=== PATIENT | female | born 1940 | race Caucasian/White ===

== ENCOUNTER → 2016-12-09 | Outpatient (CLI) | payer MEDICARE, BC ==
--- NOTE | 2016-12-09 10:55 | US ---
EXAMINATION TYPE: US transvaginal DATE OF EXAM: 12/09/2016 COMPARISON: NONE CLINICAL HISTORY: R10.32 Left Lower Quadrant Pain. Patient states having a CT at [facility] with results s howing enlarged left ovary. , TECHNIQUE: Transvaginal (TV) and Transabdominal (TA) Date of LMP: Postmenopausal x 25 years EXAM MEASUREMENTS: Uterus: 7.2 x 5.3 x 4.5 cm Left Ovary: 7.9 x 7.9 x 4.2 x cm Suboptimal visualization due to patient body habitus and patient unable to tolerate transvaginal exam . 1. Uterus: Anteverted Heterogenous. Multiple lesions seen. Largest hypoechoic lesion seen in rig ht DENISE = 2.0 x 1.7 x 1.7 cm. Multiple left echogenic lesions seen. Fluid seen in scar = 0. 8 x 0.4 cm 2. Endometrium: Not well visualized 3. Right Ovary: Obscured by overlying bowel gas 4. Left Ovary: Unable to see transvaginally due to location. Scanned transabdominally. Hypoechoic lesion seen - 5.2 x 4.5 x 3.6 cm Spectral, color and waveform doppler imaging shows good arterial and venous flow within the ovaries ; there is no evidence for ovarian torsion. 5. Bilateral Adnexa: wnl 6. Posterior cul-de-sac: no free fluid Exam noted suboptimal due to patient's large body habitus and poor tolerance of transvaginal evaluati on. Liver is markedly heterogeneous in appearance with suspected multiple poorly defined hypoechoic f ibroids. Endometrium is not seen with certainty. In the left adnexa there is irregular hypoechoic are a marked by technologist measuring 5.2 x 4.5 x 3.6 cm could reflect enlarged left ovary in postmenopa usal female. IMPRESSION: Suboptimal but abnormal study, abnormal left adnexal possible ovarian mass. Need to furth er investigate with MRI should be based on clinical and lab correlation as well as correlation with o utside CT. Suspected fibroid uterus noted.
== END | disposition home or self-care (01) ==
LOC: RADUSWWP 09:07
PROVIDERS: ATTEND Internal Medicine
DX: R10.32 Left lower quadrant pain (principal)
CPT/HCPCS: 76830

== ENCOUNTER → 2017-09-27 | Outpatient (CLI) | payer MEDICARE, BC ==
--- NOTE | 2017-09-27 12:12 | US ---
EXAMINATION TYPE: US venous doppler duplex LE LT DATE OF EXAM: 09/27/2017 11:54 AM COMPARISON: Bilateral lower extremity venous ultrasound April 05, 2013 CLINICAL HISTORY: M79.89 LEFT LEG SWELLING. Pt states left leg pain and swelling on/off x few years/ No known prior DVT SIDE PERFORMED: Left TECHNIQUE: The lower extremity deep venous system is examined utilizing real time linear array sonog nandini with graded compression, doppler sonography and color-flow sonography. VESSELS IMAGED: External Iliac Vein (EIV) Common Femoral Vein Deep Femoral Vein Greater Saphenous Vein * Femoral Vein Popliteal Vein Small Saphenous Vein * Proximal Calf Veins (* superficial vessels) Left Leg: Negative for DVT Results called to Krys at Dr's office at time of exam Grayscale, color doppler, spectral doppler imaging performed of the deep veins of the left lower extr emity. There is normal flow, compressibility, vascular waveforms. IMPRESSION: No ultrasound evidence for acute DVT in the left lower extremity.
== END | disposition home or self-care (01) ==
LOC: RADUSWWP 11:29
PROVIDERS: ATTEND Internal Medicine
DX: M79.89 Other specified soft tissue disorders (principal)

== ENCOUNTER → 2018-11-11 | Outpatient (CLI) | payer MEDICARE, BC ==
--- NOTE | 2018-11-11 13:21 | XR ---
EXAMINATION TYPE: XR bone survey complete DATE OF EXAM: 11/11/2018 COMPARISON: NONE HISTORY: Bilateral arm pain, history of renal disease, renal mass, an ovarian mass. FINDINGS: Overall there is diffuse mild osseous demineralization and can be seen and renal osteodystr ophy or other etiology of osteoporosis. BONY CALVARIUM : 2 views of the bony calvarium demonstrate no widening of the diploic space. Pineal g land calcifications are noted. Sella turcica is unremarkable. No focal lytic lesion is seen. Few prom inent arachnoid granulations are noted. Minimal left maxillary mucosal thickening is seen. Remaining paranasal sinuses appear well aerated. SPINE: Two views of the cervical, thoracic and lumbar spines are submitted. Mild multilevel degenera tive changes of the cervical spine are seen with straightening of usual cervical lordosis that may be on the basis of muscular sprain/spasm and/or patient positioning. Thoracic spine demonstrates modera te degenerative changes of the lower thoracic spine without vertebral body height loss. Bridging ante rior osteophytes are seen. Lumbar spine also demonstrates mild multilevel degenerative change demonst rated as bridging anterior osteophytes of the upper lumbar spine and facet arthropathy of the lower l umbar spine. Extensive atherosclerosis of the abdominal aorta is also noted on the lateral view of th e lumbar spine. Cholecystectomy clips are also seen. Mild levoscoliosis of the lumbar spine is noted. PELVIS: Single view of the pelvis demonstrates mild bilateral femoral acetabular arthropathy and sac roiliac joint sclerosis. No acute fracture of the pelvis. No focal lytic lesion. Bowel gas limits carl luation for lytic lesion in the upper iliac bones. UPPER EXTREMITIES: Two views of the upper extremities were submitted. Moderate bilateral chromic clav icular arthropathy is seen. No suspicious lesion within either humerus. LOWER EXTREMITIES: 2 views of the lower extremities were submitted. Moderate to severe arthropathy o f the knees is seen. No focal lytic lesion or suspicious sclerosis is seen of the bilateral femurs. SINGLE VIEW OF THE CHEST: Cardiomediastinal silhouette is upper limits of normal. Mild pulmonary vasc ular prominence/cephalization. No sizable pleural effusion or pneumothorax. No focal consolidation. IMPRESSION: 1. Mild generalized osseous demineralization and can be seen in renal osteodystrophy or other etiolog y. No focal sclerosis, brown tumor, or suspicious osseous lesion are seen. 2. Mild pulmonary vascular congestion. Correlate for noncardiogenic fluid overload.
== END | disposition home or self-care (01) ==
LOC: RADXRMAIN 10:17
PROVIDERS: ATTEND Nurse Practitioner Adult Health
DX: N18.9 Chronic kidney disease, unspecified (principal); E11.22 Type 2 diabetes mellitus with diabetic chronic kidney disease; E03.9 Hypothyroidism, unspecified; Z71.3 Dietary counseling and surveillance
CPT/HCPCS: 77075

== ENCOUNTER → 2021-01-07 | Day surgery (SDC) | payer MEDICARE, BC ==
[~2021-01-07] MED LIST: LACTATED RINGERS 1,000 ML IV SCH; LIDOCAINE 1% INJ 10MG/ML (20 ML MDV) ONE; PROPOFOL 10 MG/ML 20 ML VIAL IV ONE
[2021-01-07 07:18] VITALS: TEMP 98
[2021-01-07 07:29] LABS: Glucose,Whole Blood 194 mg/dL (75-99)
[2021-01-07 08:21] VITALS: BP 134/76; PULSE 60; RESP 20
[2021-01-07 08:39] LABS: Anisocytosis Slight; Basophils % (A) 1 %; Eosinophils % (A) 1 %; HCT 30.7 % (34.0-46.0); HGB 10.1 gm/dL (11.4-16.0); Lymphocytes # (A) 0.4 k/uL (1.0-4.8); Lymphocytes % (A) 28 %; MCH 27.6 pg (25.0-35.0); MCHC 32.8 g/dL (31.0-37.0); MCV 84.4 fL (80.0-100.0); Mean Platelet Volume 10.4; Monocytes # (A) 0.1 k/uL (0-1.0); Monocytes % (A) 6 %; Neutrophils % (A) 62 %; Platelet Count 190 k/uL (150-450); Poikilocytosis Slight; RBC 3.64 m/uL (3.80-5.40); RDW 16.2 % (11.5-15.5); WBC 1.6 k/uL (3.8-10.6)
[2021-01-07 08:45] LABS: Reticulocyte % 2.2 % (0.5-2.0)
[2021-01-07 09:02] LABS: Rouleaux Present
--- NOTE | 2021-01-07 09:07 | PCN ---
PROCEDURE NOTE PREOP DIAGNOSIS: Multiple myeloma. POSTOP DIAGNOSIS: Multiple myeloma. ANESTHESIA: Local with IV systemic sedation. DETAILS: Utilizing sterile technique, the skin overlying the right iliac crest was prepared with alcohol after adequate sterile draping, local anesthesia with 1% lidocaine and systemic sedation, a size 11 4 inch [employer] needle was utilized to access the periosteum with ease. A total of 14 mL of aspirate and 7 mm core biopsies were obtained. The patient tolerated the procedure well. There was no immediate procedure related complications. TOTAL BLOOD LOSS: Less than 1 mL. Results pending. MMODL / IJN: [id number] /
== END ==
LOC: OR 06:46
PROVIDERS: ATTEND Internal Medicine Hematology & Oncology
DX: C90.00 Multiple myeloma not having achieved remission (principal); I10 Essential (primary) hypertension; E78.5 Hyperlipidemia, unspecified; E11.9 Type 2 diabetes mellitus without complications; E07.9 Disorder of thyroid, unspecified; N28.9 Disorder of kidney and ureter, unspecified
CPT/HCPCS: 85025; 85045; 38222; J2001; J2704

== ENCOUNTER → 2022-05-05 | Outpatient (CLI) | payer MEDICARE, BC ==
--- NOTE | 2022-05-05 11:50 | CT ---
EXAMINATION TYPE: CT abdomen pelvis wo con DATE OF EXAM: 05/05/2022 COMPARISON: Pain HISTORY: Calculus of Kidney CT DLP: 1709.20 mGycm Automated exposure control for dose reduction was used. TECHNIQUE: Helical acquisition of images was performed from the lung bases through the pelvis. FINDINGS: LUNG BASES: No significant abnormality is appreciated. Annular calcification noted. Heart size mildly enlarged. LIVER/GB: Postcholecystectomy changes noted. PANCREAS: No significant abnormality is seen. SPLEEN: No significant abnormality is seen. ADRENALS: No significant abnormality is seen. KIDNEYS: Right kidney: There is mild right hydronephrosis with a right renal pelvic calculus measuring 2.2 cm There is a additional 1 and 2 mm posterior mid pole right renal calculus. Left kidney: No hydronephrosis or nephrolithiasis. Calcification seen anteriorly in the mid pole on a xial image 61 is most likely vascular. URINARY BLADDER: No significant abnormality is seen. ADENOPATHY: None visualized. OSSEOUS STRUCTURES: No significant abnormality is seen. BOWEL: Bowel gas pattern nonspecific with no evidence of obstruction. Diverticulosis of the colon. OTHER: There is an anterior abdominal wall defect. There is subcutaneous edema. There is a lobulated exophytic mass extending off the left anterior margin of the uterus measuring 6.1 cm. No free fluid. Vascular calcifications are noted. Aorta of normal caliber. IMPRESSION: 1. Multiple right-sided renal calculi in the largest measuring 2.2 cm. Mild hydronephrosis. 2. 6.1 cm left uterine mass recommend ultrasound of the pelvis. Although this could represent a uteri ne fibroid other uterine masses are not excluded. Additionally there is a cystic adnexal lesion on th e left measuring 3 cm which is atypical for this age group. Consider correlation with tumor marker CA 125. 3. Anterior abdominal wall hernia containing bowel loops but no evidence of obstruction.
== END | disposition home or self-care (01) ==
LOC: RADCTMAIN 11:12
PROVIDERS: ATTEND Urology
DX: N13.2 Hydronephrosis with renal and ureteral calculous obstruction (principal); N83.8 Other noninflammatory disorders of ovary, fallopian tube and broad ligament; K43.9 Ventral hernia without obstruction or gangrene; D25.9 Leiomyoma of uterus, unspecified
CPT/HCPCS: 74176

== ENCOUNTER → 2022-06-18 | Outpatient (CLI) | payer MEDICARE, BC ==
[2022-06-18 15:30] LABS: HCT 38.6 % (37.2-46.3); HGB 12.5 g/dL (12.0-15.0); MCH 29.2 pg (27.0-32.0); MCHC 32.4 g/dL (32.0-37.0); MCV 90.2 fL (80.0-97.0); Mean Platelet Volume 12.2 fL (9.5-12.2); NRBC Per 100 WBC 0 /100 WBCS (0.0-0.0); Platelet Count 152 X 10*3/uL (140-440); RBC 4.28 X 10*6/uL (4.10-5.20); WBC 7.33 X 10*3/uL (4.50-10.00)
[2022-06-18 15:33] LABS: Appearance,Urine Clear (Clear); Bilirubin,Urine Negative (Negative); Blood,Urine Large (Negative); Color,Urine Yellow (Yellow); Ketones,Urine Negative (Negative); Nitrite,Urine Negative (Negative); PH, Urine 5.5 (5.0-8.0); Specific Gravity,Urine 1.009 (1.001-1.030); Urobilinogen,Urine 0.2 (0.2,1.0)
[2022-06-18 15:41] LABS: African American GFR (CKD) 42.1 (60.0-200.0); Albumin 4.2 g/dL (3.8-4.9); Albumin/Globulin Ratio 1.73 (1.60-3.17); Anion Gap 13.8 mmol/L (10.00-18.00); BUN/Creat Ratio 16.72 Ratio (12.00-20.00); Bacteria,Urine None Seen /HPF (None Seen); Blood Urea Nitrogen 22.9 mg/dL (9.0-27.0); Calcium 8.3 mg/dL (8.7-10.3); Carbon Dioxide 25.2 mmol/L (20.0-27.5); Globulin 2.4 g/dL (1.6-3.3); Non-African American GFR(CKD) 36.3 (60.0-200.0); Potassium 3.6 mmol/L (3.5-5.5); Total Bilirubin 0.9 mg/dL (0.30-1.20); Total Protein 6.6 g/dL (6.2-8.2)
== END | disposition home or self-care (01) ==
LOC: LABPAT 09:55
PROVIDERS: ATTEND Urology
DX: Z01.812 Encounter for preprocedural laboratory examination (principal); R31.29 Other microscopic hematuria
CPT/HCPCS: 80053; 81001; 85027; 87086

== ENCOUNTER → 2022-11-12 | Outpatient (CLI) | payer MEDICARE, BC ==
--- NOTE | 2022-11-12 13:18 | CT ---
EXAMINATION TYPE: CT abdomen pelvis wo con DATE OF EXAM: 11/12/2022 COMPARISON: 05/05/2022 HISTORY: flank pain, UTI CT DLP: 1175.7 mGycm Examination of the solid and hollow viscera is limited given the lack of contrast. FINDINGS: LUNG BASES: No evidence for nodule. No evidence for infiltrate. LIVER/GB: The gallbladder is surgically absent. No space-occupying hepatic lesion. PANCREAS: No pancreatic mass identified. No inflammatory process seen. SPLEEN: No evidence for splenomegaly. No intrasplenic lesions seen. ADRENALS: No adrenal nodules identified. No evidence for thickening. KIDNEYS: Exophytic hypoattenuating lesion measuring 2.6 cm upper pole left kidney and a reflect a cys t. 1 cm exophytic cyst lower pole left kidney. Nonobstructing 3 mm calculus midpole right kidney. No hydronephrosis. BOWEL: Appendix has a normal appearance. No evidence of bowel obstruction. No inflammatory process. G ated sigmoid diverticulosis. Lymph nodes: No evidence for adenopathy greater than 1 cm. Abdominal aorta: Atheromatous changes seen. No evidence for aneurysm. Genital organs: Exophytic mass arising from the uterine fundus to the left of midline measuring 6.6 c m may reflect large leiomyoma. Small focal calcification seen as well. Other: Wide mouth low anterior abdominal midline hernia contains fat and a couple of loops of nonobst ructed small bowel. IMPRESSION: 1. Probable renal cystic lesions. Lack of contrast limits evaluation. 2. Nonobstructing right renal lesion. 3. Large exophytic uterine mass may reflect leiomyoma and could be further evaluated with ultrasound.
== END | disposition home or self-care (01) ==
LOC: RADCTMAIN 12:25
PROVIDERS: ATTEND Urology
DX: N20.0 Calculus of kidney (principal); N20.9 Urinary calculus, unspecified; N28.89 Other specified disorders of kidney and ureter
CPT/HCPCS: 74176

== ENCOUNTER → 2023-10-12 | Day surgery (SDC) | payer MEDICARE, BC ==
[~2023-10-12] MED LIST changes: +ALPRAZolam 0.25 MG TAB PO PRN; +ALPRAZolam 0.5 MG TAB PO PRN; +ASPIRIN 325 MG TAB PO STA; +ATORVASTATIN 80 MG TAB PO STA; +HEPARIN SODIUM 1,000 UN/ML (10ML VL) ONE; +HEPARIN SODIUM,PORCINE (1 ML) 2,500 UNIT in SODIUM CHLORIDE 0.9% 250 ML IRRIGATION PRN; +HEPARIN SODIUM,PORCINE 10,000 UNIT in SODIUM CHLORIDE 0.9% 1,000 ML IRRIGATION PRN; -LACTATED RINGERS 1,000 ML IV SCH; +NITROGLYCERIN SL TABS 0.4 MG TAB SUBLINGUAL PRN; -PROPOFOL 10 MG/ML 20 ML VIAL IV ONE; +SODIUM CHLORIDE 0.9% 1,000 ML in EMPTY BAG 1 BAG IV SCH; +VERAPAMIL 2.5 MG/ML 2 ML AMP ONE; +fentaNYL (PF) 50 MCG/ML 2 ML AMP ONE
[2023-10-12 12:32] LABS: Basophils # (A) 0.1 k/uL (0-0.2); Basophils % (A) 1 %; Eosinophils # (A) 0.2 k/uL (0-0.7); Eosinophils % (A) 3 %; HCT 37.2 % (34.0-46.0); HGB 12.2 gm/dL (11.4-16.0); Lymphocytes # (A) 2.4 k/uL (1.0-4.8); Lymphocytes % (A) 32 %; MCH 30.3 pg (25.0-35.0); MCHC 32.7 g/dL (31.0-37.0); MCV 92.5 fL (80.0-100.0); Mean Platelet Volume 10.5; Monocytes # (A) 0.4 k/uL (0-1.0); Monocytes % (A) 6 %; Neutrophils # (A) 4.1 k/uL (1.3-7.7); Neutrophils % (A) 56 %; Platelet Count 140 k/uL (150-450); RBC 4.02 m/uL (3.80-5.40); RDW 13.3 % (11.5-15.5); WBC 7.3 k/uL (3.8-10.6)
[2023-10-12 12:32] LABS: Glucose,Whole Blood 160 mg/dL (70-110)
[2023-10-12 12:33] VITALS: RESP 16; TEMP 97.7
[2023-10-12] MEDS: SODIUM CHLORIDE 0.9% 1,000 ML IV ONE (12:39)
[2023-10-12 12:53] LABS: African American GFR (CKD) 49 (>60 ml/min/1.73 sqM); Anion Gap 10 mmol/L; Blood Urea Nitrogen 21 mg/dL (7-17); Calcium 8.4 mg/dL (8.4-10.2); Carbon Dioxide 20 mmol/L (22-30); Chloride 110 mmol/L (98-107); Glucose 151 mg/dL (74-99); Non-African American GFR(CKD) 43 (>60 ml/min/1.73 sqM); Sodium 140 mmol/L (137-145)
[2023-10-12 12:55] LABS: Potassium 4.9 mmol/L (3.5-5.1)
[2023-10-12] MEDS: fentaNYL (PF) 50 MCG/ML 2 ML AMP IVP ONE (13:45)
[2023-10-12] MEDS: MIDAZOLAM 2 MG/2 ML VIAL IVP ONE (13:45)
[2023-10-12] MEDS: LIDOCAINE 1% INJ 10MG/ML (20 ML MDV) SQ ONE (13:45)
[2023-10-12] MEDS: VERAPAMIL SYRINGE (5 MG/10 ML) INTRAARTER ONE (13:46)
[2023-10-12] MEDS: HEPARIN SODIUM 1,000 UN/ML (10ML VL) IVP ONE (13:51)
[2023-10-12] MEDS: IOPAMIDOL-370 200ML BTL INJ ONE (13:55)
--- NOTE | 2023-10-12 15:14 | P.CARDCATH ---
Description of Procedure: PROCEDURES PERFORMED: Left heart catheterization, bilateral coronary angiography, ultrasound guided arterial access INDICATION: [] CONSENT:I have discussed the risks, benefits and alternative therapies for the above-mentioned procedure and for both sedation/analgesia as well as necessary blood product administration, if indicated, as they pertain to this patient. The patient has indicated understanding and acceptance of the risks and procedures discussed. PROCEDURE: After the risks, benefits and alternatives of the above mentioned procedure explained in detail with the patient, informed consent was obtained. Patient was taken to the catheterization lab and prepped and draped in usual fashion. Ultrasound guidance was used to assess for arterial access. 1% lidocaine was used to anesthetize the right radial artery. A 6-Kazakh sheath was placed in the right radial artery using modified Seldinger technique and ultrasound guidance. Left coronary angiography was performed with a 5-Kazakh JL 3.5 catheter and right coronary angiography was performed with a 5-Kazakh FR5 catheter in various views. A 5-Kazakh FR5 catheter was inserted into the left ventricle and pressure measurements were obtained. The right radial sheath was removed and a TR band was placed with hemostasis achieved. The patient tolerated the procedure well. Patient was transported back to the post catheterization holding area in stable condition. Conscious Sedation: Patient was monitored under the direct supervision of myself for conscious sedation using Versed and fentanyl for a total duration of 7 minutes HEMODYNAMICS: Aorta: 151/79 LV: 188/15, LVEDP 27, mean gradient 35mmHg SELECTIVE CORONARY ARTERIOGRAPHY: LEFT MAIN: The left main is a large caliber vessel which trifurcates into the LAD, ramus and circumflex. There is no significant stenosis. LEFT ANTERIOR DESCENDING CORONARY ARTERY: LAD is a large caliber vessel which wraps around to the apex. There is a 30-40% mid LAD stenosis after a moderate caliber diagonal 1 branch and otherwise mild luminal irregularities. Diagonal 1 has a proximal 20-30% stenosis. RAMUS INTERMEDIUS: Ramus intermedius is a small to moderate caliber vessel with mild luminal irregularities. LEFT CIRCUMFLEX CORONARY ARTERY: Left circumflex is a moderate caliber vessel with mild luminal irregularities. RIGHT CORONARY ARTERY: The right coronary artery is a large caliber vessel which gives off a PDA and PLV branch and is the dominant vessel. There is a mid RCA 30% stenosis and a proximal PDA 50% stenosis. FINAL IMPRESSION: 1. Mild to moderate CAD as described above including 30-40% mid LAD stenosis, mid RCA 30% stenosis and proximal PDA 50% stenosis. 2. Elevated left sided filling pressures 3. Moderate aortic stenosis PLAN: 1. Aggressive risk factor modification per most recent ACC/AHA guidelines. 2. Patient with significantly elevated LVEDP and consider increasing diuretics. Discussed avoiding salt.
[2023-10-12 18:40] VITALS: BP 151/69; PULSE 80
== END ==
LOC: CATHCVL 11:18
PROVIDERS: ATTEND Internal Medicine
DX: I25.10 Atherosclerotic heart disease of native coronary artery without angina pectoris (principal); E78.5 Hyperlipidemia, unspecified; I12.9 Hypertensive chronic kidney disease with stage 1 through stage 4 chronic kidney disease, or unspecified chronic kidney disease; N18.9 Chronic kidney disease, unspecified; Z82.49 Family history of ischemic heart disease and other diseases of the circulatory system; Z79.82 Long term (current) use of aspirin; Z79.899 Other long term (current) drug therapy
CPT/HCPCS: 93458; 76937; 80048; 85025; C1769; C1894; J2250; J2001; J3010; J1644; Q9967

== ENCOUNTER 2024-01-31 21:44 | Inpatient (IN) | payer MEDICARE, BC ==
--- NOTE | 2024-01-31 22:03 | ED ---
General Adult HPI - General Chief complaint: Extremity Injury, Upper Stated complaint: Extremity Problem Time Seen by Provider: 01/31/24 21:46 Source: patient, EMS Mode of arrival: EMS Limitations: no limitations - History of Present Illness Initial comments: Patient is an 83-year-old woman who arrives here as a transfer from [facility]. The patient had fallen against her car this afternoon and had gone to the other department where she was seen and during workup found to have right humerus fracture with displacement. The patient also having left shoulder pain and therefore not able to use either arm. Denies injury to head or neck. No chest, back, abdomen or lower extremity pains. -: hour(s) Location: left, right, upper extremity Radiation: non-radiation Quality: sharp Consistency: constant Improves with: immobilization Worsens with: none Associated Symptoms: denies other symptoms Treatments Prior to Arrival: none - Related Data Home Medications Medication Instructions Recorded Confirmed Cholecalciferol [Vitamin D3 (25 50 mcg PO DAILY 01/03/21 02/01/24 Mcg = 1000 Iu)] Gabapentin [Neurontin] 400 mg PO BID 01/03/21 02/01/24 Calcium Carbonate [Tums] 500 mg PO DAILY 06/19/22 02/01/24 Losartan Potassium [Cozaar] 50 tab PO DAILY 06/19/22 02/01/24 INSULIN LISPRO (HumaLOG) [humaLOG] See Protocol SQ AC-TID 10/08/23 02/01/24 Insulin Glargine/Lixisenatide 46 unit SQ DAILY 10/08/23 02/01/24 [Soliqua 100 Unit-33 Mcg/ml Pen] Spironolactone 25 mg PO HS 10/08/23 02/01/24 Chlorhexidine Gluconate [Peridex] 15 ml PO BID 02/01/24 02/01/24 Empagliflozin [Jardiance] 10 mg PO DAILY 02/01/24 02/01/24 Levothyroxine Sodium [Synthroid] 112 mcg PO DAILY 02/01/24 02/01/24 Potassium Citrate [Urocit-K] 15 meq PO BID 02/01/24 02/01/24 amLODIPine [Norvasc] 10 mg PO HS 02/01/24 02/01/24 Allergies Allergy/AdvReac Type Severity Reaction Status Date / Time No Known Allergies Allergy Verified 02/01/24 14:45 Review of Systems ROS Statement: Those systems with pertinent positive or pertinent negative responses have been documented in the HPI. ROS Other: All systems not noted in ROS Statement are negative. Constitutional: Denies: fever, chills Respiratory: Denies: cough, dyspnea Cardiovascular: Denies: chest pain, palpitations Gastrointestinal: Denies: abdominal pain, nausea, vomiting Genitourinary: Denies: dysuria, hematuria Musculoskeletal: Reports: as per HPI, joint swelling, arthralgia. Denies: back pain Skin: Denies: rash Neurological: Denies: headache, weakness, numbness, paresthesias Past Medical History Past Medical History: Diabetes Mellitus, Hyperlipidemia, Hypertension, Renal Disease, Thyroid Disorder Additional Past Medical History / Comment(s): IDDM. ANEMIA/iron infusions, STAGE III KIDNEY STAGE. PERIPHERAL NEUROPATHY FEET AND HANDS. History of Any Multi-Drug Resistant Organisms: None Reported Past Surgical History: Appendectomy, Section, Cholecystectomy, Tonsillectomy Additional Past Surgical History / Comment(s): THYROIDECTOMY Past Anesthesia/Blood Transfusion Reactions: No Reported Reaction Past Psychological History: No Psychological Hx Reported Smoking Status: Never smoker - Past Family History Mother Family Medical History: No Reported History Additional Family Medical History / Comment(s): "heart issues" General Exam Limitations: no limitations General appearance: alert, in no apparent distress Head exam: Present: atraumatic, normocephalic Eye exam: Present: normal appearance. Absent: scleral icterus, conjunctival injection ENT exam: Present: normal oropharynx Neck exam: Present: normal inspection, full ROM. Absent: tenderness Respiratory exam: Present: normal lung sounds bilaterally. Absent: respiratory distress, wheezes, rales, rhonchi, stridor, chest wall tenderness, accessory muscle use Cardiovascular Exam: Present: regular rate, normal rhythm, normal heart sounds. Absent: systolic murmur, diastolic murmur, rubs, gallop GI/Abdominal exam: Present: soft. Absent: distended, tenderness, guarding, rebound, rigid, mass Extremities exam: Present: tenderness, normal capillary refill, joint swelling, other (Patient arrives with splint to the R elbow/forearm. There is swelling and tenderness to the proximal humerus. Intact neurovascular to the right wrist and hand. The patient has tenderness and decreased range of motion to the left shoulder.). Absent: full ROM, pedal edema Back exam: Present: normal inspection. Absent: vertebral tenderness Neurological exam: Present: alert. Absent: motor sensory deficit Skin exam: Present: warm, dry, intact, normal color. Absent: rash Course Vital Signs 01/31/24 02/01/24 02/01/24 21:49 01:41 04:44 Temperature 97.9 F Pulse Rate 74 76 83 Respiratory 18 19 18 Rate Blood Pressure 132/70 149/70 132/49 O2 Sat by Pulse 94 L 95 95 Oximetry 02/01/24 02/01/24 02/01/24 06:22 08:20 09:35 Temperature 99.3 F Pulse Rate 82 81 64 Respiratory 18 18 18 Rate Blood Pressure 162/68 143/61 137/40 O2 Sat by Pulse 95 93 L 95 Oximetry 02/01/24 02/01/24 10:24 11:15 Temperature 98.5 F Pulse Rate 75 74 Respiratory 18 18 Rate Blood Pressure 112/75 123/56 O2 Sat by Pulse 95 95 Oximetry EKG Findings - EKG Results: EKG: interpreted by ERMD, normal axis, normal QRS - Dysrhythmias: Supraventricular dysrhythmia: ectopic atrial rhythm - Blocks, [place], Hypertrophy, ST Abn: AV and intraventricular conduction: 1 AV block Repolarization changes or abnormalities: nonspecific abnormality, ST segment, and/or T wave Medical Decision Making - Medical Decision Making Was pt. sent in by a medical professional or institution (LINDA Torres, SAFETY EQUIPMENT TESTER, urgent care, hospital, or detention...) When possible be specific @ -[Patient is transferred here from [facility] to have orthopedic surgery evaluation for humerus fracture Did you speak to anyone other than the patient for history (EMS, parent, family, police, friend...)? What history was obtained from this source @ -[Case discussed with the transferring physician Did you review nursing and triage notes (agree or disagree)? Why? @ -[I reviewed and agree with nursing and triage notes] Were old charts reviewed (outside hosp., previous admission, EMS record, old EKG, old radiological studies, urgent care reports/EKG's, detention records)? Report findings @ -[Transfer charts were reviewed] Differential Diagnosis (chest pain, altered mental status, abdominal pain women, abdominal pain men, vaginal bleeding, weakness, fever, dyspnea, syncope, headache, dizziness, GI bleed, back pain, seizure, CVA, palpatations, mental health, musculoskeletal)? @ -[Differential Musculoskeletal Muscular strain, contusion, ligament sprain, fracture, arthritis, septic arthritis, bursitis, cellulitis, muscle spasm, nerve compression, DVT, arterial occlusion, herpes zoster, electrolyte abnormality, tumor.... This is not meant to be in all inclusive list EKG interpreted by me (3pts min.). @ -[I interpreted as above] X-rays interpreted by me (1pt min.). @ -[None done] CT interpreted by me (1pt min.). @ -[None done] U/S interpreted by me (1pt. min.). @ -[None done] What testing was considered but not performed or refused? (CT, X-rays, U/S, labs)? Why? @ -[None] What meds were considered but not given or refused? Why? @ -[None] Did you discuss the management of the patient with other professionals (professionals i.e. , PA, SAFETY EQUIPMENT TESTER, lab, RT, psych nurse, public health social worker, miniature set designer, teacher, medical officer, employment case manager)? Give summary @ -[Case discussed with admitting physician and treatment recommendations are incorporated Was smoking cessation discussed for >3mins.? @ -[No] Was critical care preformed (if so, how long)? @ -[No] Were there social determinants of health that impacted care today? How? (Homelessness, low income, unemployed, alcoholism, drug addiction, transportation, low edu. Level, literacy, decrease access to med. care, skilled nursing, rehab)? @ -[No] Was there de-escalation of care discussed even if they declined (Discuss DNR or withdrawal of care, Hospice)? DNR status @ -[No] What co-morbidities impacted this encounter? (DM, HTN, Smoking, COPD, CAD, Cancer, CVA, ARF, Chemo, Hep., AIDS, mental health diagnosis, sleep apnea, morbid obesity)? @ -[Underlying diabetes Was patient admitted / discharged? Hospital course, mention meds given and route, prescriptions, significant lab abnormalities, going to OR and other pertinent info. @ -[Patient is an 83-year-old woman here with bilateral humerus fractures. She is not able to move either arm and therefore not able to care for self as outpatient. The patient is admitted to orthopedic surgery given the acute nature of the injury we will have medical consultation for medical management. Undiagnosed new problem with uncertain prognosis? @ -[No] Drug Therapy requiring intensive monitoring for toxicity (Heparin, Nitro, Insulin, Cardizem)? @ -[No] Were any procedures done? @ -[No] Diagnosis/symptom? @ -[Left humerus neck fracture Right proximal humerus shaft fracture with displacement Acute, or Chronic, or Acute on Chronic? @ -[Acute Uncomplicated (without systemic symptoms) or Complicated (systemic symptoms)? @ -[Uncomplicated Side effects of treatment? @ -[No] Exacerbation, Progression, or Severe Exacerbation? @ -[No] Poses a threat to life or bodily function? How? (Chest pain, [place], [place], pneumonia, PE, COPD, DKA, ARF, appy, cholecystitis, CVA, Diverticulitis, Homicidal, Suicidal, threat to staff... and all critical care pts) @ -[No] - Lab Data Result diagrams: 02/01/24 10:08 02/02/24 07:50 Disposition Clinical Impression: Fall, Closed fracture of left proximal humerus, Right humeral fracture Disposition: ADMITTED IP TO THIS HOSP Condition: Stable Is patient prescribed a controlled substance at d/c from ED?: No
[2024-01-31] MEDS ORDERED: ONDANSETRON 4 MG/2 ML VIAL IVP PRN (22:44)
[2024-01-31] MEDS ORDERED: ACETAMINOPHEN TAB 325 MG TAB PO PRN (22:44)
[2024-01-31] MEDS ORDERED: NALOXONE 0.4 MG/ML 1 ML VIAL IV PRN (22:44)
[2024-01-31] MEDS ORDERED: MAGNESIUM HYDROXIDE 2,400 MG/30 ML CUP PO PRN (22:44)
[2024-01-31] MEDS ORDERED: MAG HYDROX/AL HYDROX/SIMETH 30 ML CUP PO PRN (22:44)
[2024-01-31] MEDS ORDERED: DEXTROSE 50% SYRINGE 50 ML IVP PRN ×2 (22:55)
[2024-01-31 23:08] LABS: Glucose,Whole Blood 164 mg/dL (70-110)
[2024-01-31] MEDS: SODIUM CHLORIDE 0.9% 1,000 ML IV SCH (23:15)
[2024-01-31 23:20] LABS: Basophils % (A) 0 %; Eosinophils # (A) 0.1 k/uL (0-0.7); Eosinophils % (A) 1 %; HCT 37.9 % (34.0-46.0); HGB 12.4 gm/dL (11.4-16.0); Lymphocytes # (A) 0.9 k/uL (1.0-4.8); Lymphocytes % (A) 9 %; MCH 29.1 pg (25.0-35.0); MCHC 32.7 g/dL (31.0-37.0); MCV 89.1 fL (80.0-100.0); Monocytes # (A) 0.5 k/uL (0-1.0); Monocytes % (A) 5 %; Neutrophils # (A) 8.4 k/uL (1.3-7.7); Neutrophils % (A) 84 %; Platelet Count 118 k/uL (150-450); RBC 4.26 m/uL (3.80-5.40); RDW 14.1 % (11.5-15.5)
[2024-01-31 23:29] LABS: Sodium 131 mmol/L (137-145)
[2024-01-31 23:30] LABS: African American GFR (CKD) 38 (>60 ml/min/1.73 sqM); Anion Gap 6 mmol/L; Blood Urea Nitrogen 35 mg/dL (7-17); Calcium 8.1 mg/dL (8.4-10.2); Carbon Dioxide 18 mmol/L (22-30); Chloride 107 mmol/L (98-107); Glucose 173 mg/dL (74-99); Non-African American GFR(CKD) 33 (>60 ml/min/1.73 sqM); Potassium 4.8 mmol/L (3.5-5.1)
[2024-02-01] MEDS: HYDROmorphone 1 MG/ML 1 ML SYRINGE IVP PRN (00:58)
[2024-02-01] MEDS: MORPHINE SULFATE 4 MG/ML SYRINGE IV PRN (05:49)
[2024-02-01] MEDS: LEVOTHYROXINE 125 MCG TAB PO SCH (05:51)
[2024-02-01 06:52] LABS: Partial Thromboplastin Time 22.5 sec (22.0-30.0); Prothrombin Time 10.7 sec (10.0-12.5)
[2024-02-01 07:30] LABS: Glucose,Whole Blood 209 mg/dL (70-110)
[2024-02-01] MEDS: LOSARTAN 25 MG TAB PO SCH (08:22)
[2024-02-01] MEDS: ASPIRIN 81 MG PO SCH (08:22)
[2024-02-01] MEDS: CHOLECALCIFEROL 25 MCG (1000 IU) TABLET PO SCH (08:22)
[2024-02-01] MEDS: GABAPENTIN 400 MG CAP PO SCH (08:22)
[2024-02-01] MEDS: FAMOTIDINE 20 MG TAB PO SCH (08:23)
[2024-02-01] MEDS: INSULIN ASPART (NovoLOG) 100 UNIT/ML VIAL SQ SCH ×2 (08:25→13:00)
[2024-02-01] MEDS: NON FORMULARY DRUG (Insulin Glargine/Lixisenatide [Soliqua 100 Unit-33 Mcg/Ml Pen] 3 ML In SQ SCH (08:27)
[2024-02-01] MEDS: HYDROcodone/APAP 5-325MG 1 EACH TAB PO PRN (09:37)
[2024-02-01] MEDS ORDERED: polyethylene glycoL 3350 17 GM POWD.PACK PO PRN (09:52)
--- NOTE | 2024-02-01 09:59 | P.CONS ---
History of Present Illness - History of Present Illness 83-year-old pleasant female had a mechanical fall due to diabetic retinopathy. Patient has right humerus fracture and also has pain in on the left side as per the patient patient also has a minor fracture on the left side patient has severe pain bilaterally. Patient is admitted to orthopedic surgery at this time. Patient does have history of coronary disease patient had a cardiac authorization 6 months ago which showed less than 50% blockages in the blood vessels and did not require any stenting at that time maximal medical therapy was recommended at that time. Patient denies any chest pain at this time patient has some EKG changes which are nonspecific. Patient denied any shortness of breath does have history of moderate aortic stenosis. Patient denied any fever or chills. Patient denies any orthopnea paroxysmal nocturnal dyspnea although patient is on 2 L of oxygen saturating at 95%. I will obtain a chest x-ray patient does have mild pedal edema and also BNP. REVIEW OF SYSTEMS: All other systems are negative except those mentioned in the HPI PHYSICAL EXAMINATION: GENERAL: The patient is alert and oriented x3, not in any acute distress. Well developed, well nourished. HEENT: Pupils are round and equally reacting to light. EOMI. No scleral icterus. No conjunctival pallor. Normocephalic, atraumatic. No pharyngeal erythema. No thyromegaly. CARDIOVASCULAR: S1 and S2 present. No murmurs, rubs, or gallops. PULMONARY: Chest is clear to auscultation, no wheezing or crackles. ABDOMEN: Soft, nontender, nondistended, normoactive bowel sounds. No palpable organomegaly. MUSCULOSKELETAL: Unable to move left arm right arm has a cast. EXTREMITIES: No cyanosis, clubbing, or pedal edema. NEUROLOGICAL: Gross neurological examination did not reveal any focal deficits. SKIN: No rashes. Assessment and plan -Right humerus fracture if patient needs surgery patient is low to intermediate operative risk same thing was explained to the patient. Patient is tolerating pain medications including [place] which will be continued we cannot use NSAIDs at this time. -Chronic kidney disease stage III -Hyponatremia secondary to Aldactone will obtain a BMP patient may have mild hypervolemic hyponatremia until I confirm that with a BNP and a chest x-ray I will hold off on Aldactone. -Hypertension patient will be resumed on losartan -Coronary artery disease resumed on statin aspirin . -Type 2 diabetes mellitus sliding scale insulin -Hypothyroidism -Moderate aortic stenosis DVT prophylaxis: As per primary service Past Medical History Past Medical History: Diabetes Mellitus, Hyperlipidemia, Hypertension, Renal Disease, Thyroid Disorder Additional Past Medical History / Comment(s): IDDM. ANEMIA/iron infusions, STAGE III KIDNEY STAGE. PERIPHERAL NEUROPATHY FEET AND HANDS. History of Any Multi-Drug Resistant Organisms: None Reported Past Surgical History: Appendectomy, Section, Cholecystectomy, Tonsillectomy Additional Past Surgical History / Comment(s): THYROIDECTOMY Past Anesthesia/Blood Transfusion Reactions: No Reported Reaction Past Psychological History: No Psychological Hx Reported Smoking Status: Never smoker - Past Family History Mother Family Medical History: No Reported History Additional Family Medical History / Comment(s): "heart issues" Medications and Allergies Home Medications Medication Instructions Recorded Confirmed Type Cholecalciferol [Vitamin D3 (25 50 mcg PO DAILY 01/03/21 02/01/24 History Mcg = 1000 Iu)] Gabapentin [Neurontin] 400 mg PO BID 01/03/21 02/01/24 History Calcium Carbonate [Tums] 500 mg PO DAILY 06/19/22 02/01/24 History Losartan Potassium [Cozaar] 50 tab PO DAILY 06/19/22 02/01/24 History INSULIN LISPRO (HumaLOG) [humaLOG] See Protocol SQ AC-TID 10/08/23 02/01/24 History Insulin Glargine/Lixisenatide 46 unit SQ DAILY 10/08/23 02/01/24 History [Soliqua 100 Unit-33 Mcg/ml Pen] Spironolactone 25 mg PO HS 10/08/23 02/01/24 History Chlorhexidine Gluconate [Peridex] 15 ml PO BID 02/01/24 02/01/24 History Empagliflozin [Jardiance] 10 mg PO DAILY 02/01/24 02/01/24 History Levothyroxine Sodium [Synthroid] 112 mcg PO DAILY 02/01/24 02/01/24 History Potassium Citrate [Urocit-K] 15 meq PO BID 02/01/24 02/01/24 History amLODIPine [Norvasc] 10 mg PO HS 02/01/24 02/01/24 History Allergies Allergy/AdvReac Type Severity Reaction Status Date / Time No Known Allergies Allergy Verified 02/01/24 09:41 Physical Exam Vitals: Vital Signs Temp Pulse Resp BP Pulse Ox 02/01/24 09:35 64 18 137/40 95 02/01/24 08:20 99.3 F 81 18 143/61 93 L 02/01/24 06:22 82 18 162/68 95 02/01/24 04:44 83 18 132/49 95 02/01/24 01:41 76 19 149/70 95 01/31/24 21:49 97.9 F 74 18 132/70 94 L Intake and Output 01/31/24 02/01/24 02/01/24 22:59 06:59 14:59 Other: Weight 95.254 kg Results CBC & Chem 7: 01/31/24 23:00 01/31/24 23:00 Labs: Abnormal Lab Results - Last 24 Hours (Table) 01/31/24 01/31/24 01/31/24 Range/Units 23:00 23:00 23:08 Plt Count 118 L (150-450) k/uL Neutrophils # 8.4 H (1.3-7.7) k/uL Lymphocytes # 0.9 L (1.0-4.8) k/uL Sodium 131 L (137-145) mmol/L Carbon Dioxide 18 L (22-30) mmol/L BUN 35 H (7-17) mg/dL Creatinine 1.48 H (0.52-1.04) mg/dL Glucose 173 H (74-99) mg/dL POC Glucose (mg/dL) 164 H (70-110) mg/dL Calcium 8.1 L (8.4-10.2) mg/dL 02/01/24 Range/Units 07:27 Plt Count (150-450) k/uL Neutrophils # (1.3-7.7) k/uL Lymphocytes # (1.0-4.8) k/uL Sodium (137-145) mmol/L Carbon Dioxide (22-30) mmol/L BUN (7-17) mg/dL Creatinine (0.52-1.04) mg/dL Glucose (74-99) mg/dL POC Glucose (mg/dL) 209 H (70-110) mg/dL Calcium (8.4-10.2) mg/dL
--- NOTE | 2024-02-01 10:12 | XR ---
EXAMINATION TYPE: XR chest 1V DATE OF EXAM: 02/01/2024 HISTORY: Shortness of breath. COMPARISON: None. TECHNIQUE: Single view of the chest is submitted. FINDINGS: Demonstrated are scattered senescent parenchymal change. There is no evidence for focal infiltrate. The heart is stable. Hilar and mediastinal structures are within normal limits. Degenerative changes are seen of the dorsal spine. IMPRESSION: 1. Chronic changes without evidence for acute pulmonary disease.
[2024-02-01] MEDS: PANTOPRAZOLE 40 MG TABLET PO SCH (10:23)
--- NOTE | 2024-02-01 11:17 | P.HPOR ---
History of Present Illness H&P Date: 02/01/24 Chief Complaint: Bilateral humerus fractures, s/p fall The patient is an 83-year-old female with a past medical history of diabetes, hypertension, renal disease and obesity who presented to the emergency department at [facility] via transfer from [facility] for further evaluation by orthopedics. The patient states that she fell yesterday evening outside and fell into her car where she braced her fall with her arms but did hit her head slightly. She was seen in the emergency department at [facility] and x-rays revealed bilateral humerus fractures, worse on the right. The patient states she also had a CT on her head. Upon evaluation in the ER this morning, the patient has a splint and sling on the right arm. She states her pain is controlled on IV pain medications. Review of Systems Constitutional: Denies chills, Denies fatigue, Denies fever Cardiovascular: Denies chest pain, Denies shortness of breath Respiratory: Denies cough Gastrointestinal: Denies diarrhea, Denies nausea, Denies vomiting Musculoskeletal: bilateral: shoulder pain, shoulder stiffness, shoulder swelling Past Medical History Past Medical History: Diabetes Mellitus, Hyperlipidemia, Hypertension, Renal Disease, Thyroid Disorder Additional Past Medical History / Comment(s): IDDM. ANEMIA/iron infusions, STAGE III KIDNEY STAGE. PERIPHERAL NEUROPATHY FEET AND HANDS. History of Any Multi-Drug Resistant Organisms: None Reported Past Surgical History: Appendectomy, Section, Cholecystectomy, Tonsillectomy Additional Past Surgical History / Comment(s): THYROIDECTOMY Past Anesthesia/Blood Transfusion Reactions: No Reported Reaction Past Psychological History: No Psychological Hx Reported Smoking Status: Never smoker - Past Family History Mother Family Medical History: No Reported History Additional Family Medical History / Comment(s): "heart issues" Medications and Allergies Home Medications Medication Instructions Recorded Confirmed Type Cholecalciferol [Vitamin D3 (25 50 mcg PO DAILY 01/03/21 02/01/24 History Mcg = 1000 Iu)] Gabapentin [Neurontin] 400 mg PO BID 01/03/21 02/01/24 History Calcium Carbonate [Tums] 500 mg PO DAILY 06/19/22 02/01/24 History Losartan Potassium [Cozaar] 50 tab PO DAILY 06/19/22 02/01/24 History INSULIN LISPRO (HumaLOG) [humaLOG] See Protocol SQ AC-TID 10/08/23 02/01/24 History Insulin Glargine/Lixisenatide 46 unit SQ DAILY 10/08/23 02/01/24 History [Soliqua 100 Unit-33 Mcg/ml Pen] Spironolactone 25 mg PO HS 10/08/23 02/01/24 History Chlorhexidine Gluconate [Peridex] 15 ml PO BID 02/01/24 02/01/24 History Empagliflozin [Jardiance] 10 mg PO DAILY 02/01/24 02/01/24 History Levothyroxine Sodium [Synthroid] 112 mcg PO DAILY 02/01/24 02/01/24 History Potassium Citrate [Urocit-K] 15 meq PO BID 02/01/24 02/01/24 History amLODIPine [Norvasc] 10 mg PO HS 02/01/24 02/01/24 History Allergies Allergy/AdvReac Type Severity Reaction Status Date / Time No Known Allergies Allergy Verified 02/01/24 09:41 Physical Examination The patient is a 83-year-old female who is in no acute distress. She is alert and oriented 3. Exam of the right upper extremity reveals a long arm splint and sling in place. She is able to wiggle her fingers without difficulty and denies any numbness. Exam of the left upper extremity reveals point tenderness to the humeral head and some ecchymosis to the left upper arm. Neurovascular sta tus is intact bilaterally. Results outside x-rays of the bilateral humerus' reveal a displaced humeral shaft fracture on the right and a minimally displaced humeral head fracture on the left. - Labs Labs: Abnormal Lab Results - Last 24 Hours (Table) 01/31/24 01/31/24 01/31/24 Range/Units 23:00 23:00 23:08 Plt Count 118 L (150-450) k/uL Neutrophils # 8.4 H (1.3-7.7) k/uL Lymphocytes # 0.9 L (1.0-4.8) k/uL Sodium 131 L (137-145) mmol/L Carbon Dioxide 18 L (22-30) mmol/L BUN 35 H (7-17) mg/dL Creatinine 1.48 H (0.52-1.04) mg/dL Glucose 173 H (74-99) mg/dL POC Glucose (mg/dL) 164 H (70-110) mg/dL Calcium 8.1 L (8.4-10.2) mg/dL 02/01/24 Range/Units 07:27 Plt Count (150-450) k/uL Neutrophils # (1.3-7.7) k/uL Lymphocytes # (1.0-4.8) k/uL Sodium (137-145) mmol/L Carbon Dioxide (22-30) mmol/L BUN (7-17) mg/dL Creatinine (0.52-1.04) mg/dL Glucose (74-99) mg/dL POC Glucose (mg/dL) 209 H (70-110) mg/dL Calcium (8.4-10.2) mg/dL H & H 01/31/24 Range/Units 23:00 Hgb 12.4 (11.4-16.0) gm/dL Hct 37.9 (34.0-46.0) % Coagulation 02/01/24 Range/Units 06:00 INR 1.0 (<1.2) Result Diagrams: 01/31/24 23:00 01/31/24 23:00 Assessment and Plan (1) Closed fracture of left proximal humerus Current Visit: Yes Status: Acute Code(s): S42.202A - UNSP FRACTURE OF UPPER END OF LEFT HUMERUS, INIT FOR CLOS FX SNOMED Code(s): 74755308 (2) Fall Current Visit: Yes Status: Acute Code(s): W19.XXXA - UNSPECIFIED FALL, INITIAL ENCOUNTER SNOMED Code(s): 9631262 (3) Right humeral fracture Current Visit: Yes Status: Acute Code(s): S42.301A - UNSP FRACTURE OF SHAFT OF HUMERUS, RIGHT ARM, INIT SNOMED Code(s): 29765854 (4) Obesity (BMI 30.0-34.9) Current Visit: Yes Status: Acute Code(s): E66.9 - OBESITY, UNSPECIFIED SNOMED Code(s): 051251960462887 (5) Diabetes mellitus Current Visit: Yes Status: Acute Code(s): E11.9 - TYPE 2 DIABETES MELLITUS WITHOUT COMPLICATIONS SNOMED Code(s): 63513887 (6) Hypertension Current Visit: Yes Status: Acute Code(s): I10 - ESSENTIAL (PRIMARY) HYPERTENSION SNOMED Code(s): 88959699 (7) Renal disease Current Visit: Yes Status: Acute Code(s): N28.9 - DISORDER OF KIDNEY AND URETER, UNSPECIFIED SNOMED Code(s): 79862785 Plan: The clinical and x-ray findings were discussed with the patient and family at the bedside. The case was discussed at length with Dr. Lechuga. Due to the patient's body habitus, we recommend surgical intervention instead of non-o perative treatment with a Forde brace. due to the complexity of the fracture we are recommending transfer to orthopedic trauma at [facility]. The case was discussed with Dr. Grubbs and he accepts the patient transfer. The patient and family are aware. Case management and nursing notified.
--- NOTE | 2024-02-01 11:19 | P.DS ---
Providers Date of admission: 01/31/24 22:47 Expected date of discharge: 02/01/24 Attending physician: Yarely Lechuga DO Consults: 01/31/24 22:44 Consult Physician Routine Consulting Provider: Cristian Ramey Consult Reason/Comments: medical management Do you want consulting provider notified?: Yes Primary care physician: Uziel Singh Kut - Discharge Diagnosis(es) (1) Closed fracture of left proximal humerus Current Visit: Yes Status: Acute (2) Fall Current Visit: Yes Status: Acute (3) Right humeral fracture Current Visit: Yes Status: Acute (4) Obesity (BMI 30.0-34.9) Current Visit: Yes Status: Acute (5) Diabetes mellitus Current Visit: Yes Status: Acute (6) Hypertension Current Visit: Yes Status: Acute (7) Renal disease Current Visit: Yes Status: Acute Hospital Course: The patient is an 83-year-old female with a past medical history of diabetes, hypertension, renal disease and obesity who presented to the emergency department at [facility] via transfer from [facility] for further evaluation by orthopedics. The patient states that she fell yesterday evening outside and fell into her car where she braced her fall with her arms but did hit her head slightly. She was seen in the emergency department at [facility] and x-rays revealed bilateral humerus fractures, worse on the right. The patient states she also had a CT on her head. Upon evaluation in the ER this morning, the patient has a splint and sling on the right arm. She states her pain is controlled on IV pain medications. Due to the complexity of the fracture we are recommending transfer to orthopedic trauma at [facility]. The case was discussed with Dr. Grubbs and he accepts the patient transfer. The patient and family are aware. Case management and nursing notified. Patient Condition at Discharge: Stable Plan - Discharge Summary New Discharge Prescriptions: No Action Calcium Carbonate [Tums] 500 mg PO DAILY amLODIPine [Norvasc] 10 mg PO HS Chlorhexidine Gluconate [Peridex] 15 ml PO BID Gabapentin [Neurontin] 400 mg PO BID Cholecalciferol [Vitamin D3 (25 Mcg = 1000 Iu)] 50 mcg PO DAILY Losartan Potassium [Cozaar] 50 tab PO DAILY INSULIN LISPRO (HumaLOG) [humaLOG] See Protocol SQ AC-TID Insulin Glargine/Lixisenatide [Soliqua 100 Unit-33 Mcg/ml Pen] 46 unit SQ DAILY Spironolactone 25 mg PO HS Potassium Citrate [Urocit-K] 15 meq PO BID Levothyroxine Sodium [Synthroid] 112 mcg PO DAILY Empagliflozin [Jardiance] 10 mg PO DAILY Discharge Medication List Cholecalciferol [Vitamin D3 (25 Mcg = 1000 Iu)] 50 mcg PO DAILY 01/03/21 [History] Gabapentin [Neurontin] 400 mg PO BID 01/03/21 [History] Calcium Carbonate [Tums] 500 mg PO DAILY 06/19/22 [History] Losartan Potassium [Cozaar] 50 tab PO DAILY 06/19/22 [History] INSULIN LISPRO (HumaLOG) [humaLOG] See Protocol SQ AC-TID 10/08/23 [History] Insulin Glargine/Lixisenatide [Soliqua 100 Unit-33 Mcg/ml Pen] 46 unit SQ DAILY 10/08/23 [History] Spironolactone 25 mg PO HS 10/08/23 [History] Chlorhexidine Gluconate [Peridex] 15 ml PO BID 02/01/24 [History] Empagliflozin [Jardiance] 10 mg PO DAILY 02/01/24 [History] Levothyroxine Sodium [Synthroid] 112 mcg PO DAILY 02/01/24 [History] Potassium Citrate [Urocit-K] 15 meq PO BID 02/01/24 [History] amLODIPine [Norvasc] 10 mg PO HS 02/01/24 [History] Follow up Appointment(s)/Referral(s): Lexy Nogueira, [facility] [REFERRING] - 1-2 days Discharge Disposition: OTHER INSTITUTION NOT DEFINED
[2024-02-01 12:49] LABS: Glucose,Whole Blood 192 mg/dL (70-110)
[2024-02-01 15:05] LABS: Basophils # (A) 0.04 X 10*3/uL (0.00-0.10); Basophils % (A) 0.5 %; Eosinophils # (A) 0.01 X 10*3/uL (0.04-0.35); Eosinophils % (A) 0.1 %; HGB 11.4 g/dL (12.0-15.0); Lymphocytes # (A) 1.07 X 10*3/uL (0.90-5.00); Lymphocytes % (A) 13.4 %; MCH 29.2 pg (27.0-32.0); MCHC 32.6 g/dL (32.0-37.0); MCV 89.7 FL (80.0-97.0); Mean Platelet Volume 12.4 FL (9.5-12.2); Monocytes # (A) 0.91 X 10*3/uL (0.20-1.00); Monocytes % (A) 11.4 %; NRBC Per 100 WBC 0 X 10*3/uL (0.00-0.01); Neutrophils # (A) 5.91 X 10*3/uL (1.80-7.70); Neutrophils % (A) 74.3 %; Platelet Count 143 X 10*3/uL (140-440); RDW 13.9 % (11.5-14.5); WBC 7.96 X 10*3/uL (4.50-10.00)
[2024-02-01 17:13] LABS: Glucose,Whole Blood 168 mg/dL (70-110)
[2024-02-01 20:06] LABS: Glucose,Whole Blood 191 mg/dL (70-110)
[2024-02-01] MEDS: ATORVASTATIN 20 MG TAB PO SCH (20:46)
[2024-02-01] MEDS ORDERED: SPIRONOLACTONE 25 MG TAB PO SCH (21:00)
[2024-02-02 06:30] LABS: Glucose,Whole Blood 202 mg/dL (70-110)
[2024-02-02 08:28] LABS: African American GFR (CKD) 31 (>60 ml/min/1.73 sqM); Anion Gap 6 mmol/L; Blood Urea Nitrogen 42 mg/dL (7-17); Calcium 7.7 mg/dL (8.4-10.2); Carbon Dioxide 18 mmol/L (22-30); Chloride 111 mmol/L (98-107); Glucose 176 mg/dL (74-99); Magnesium 2.2 mg/dL (1.6-2.3); Non-African American GFR(CKD) 27 (>60 ml/min/1.73 sqM); Potassium 5.2 mmol/L (3.5-5.1); Sodium 135 mmol/L (137-145)
[2024-02-02 10:09] VITALS: RESP 17
[2024-02-02] MEDS: INSULIN DETEMIR (LEVEMIR) 100 UNIT/ML SYR SQ SCH (11:56)
[2024-02-02] MEDS: SODIUM ZIRCONIUM CYCLOSILICATE 10 GM PACKET PO ONE (11:56)
[2024-02-02 12:20] LABS: Glucose,Whole Blood 171 mg/dL (70-110)
--- NOTE | 2024-02-02 12:55 | P.PN ---
Subjective Progress Note Date: 02/02/24 Principal diagnosis: Bilateral humerus fractures The patient is an 83-year-old female with a past medical history of diabetes, hypertension, renal disease and obesity who presented to the emergency department at [facility] via transfer from [facility] for further evaluation by orthopedics. The patient states that she fell yesterday evening outside and fell into her car where she braced her fall with her arms but did hit her head slightly. She was seen in the emergency department at [facility] and x-rays revealed bilateral humerus fractures, worse on the right. The patient states she also had a CT on her head. Upon evaluation in the ER this morning, the patient has a splint and sling on the right arm. She states her pain is controlled on IV pain medications. 02/02/2024: Patient seen on the observation unit. We awaiting a bed at [facility]. Transfer was accepted by Dr. Grubbs. She states her pain is controlled at this time. Objective - Vital Signs Vital signs: Vital Signs Temp 98.3 F 02/02/24 08:00 Pulse 77 02/02/24 08:00 Resp 17 02/02/24 08:00 BP 113/43 02/02/24 08:00 Pulse Ox 97 02/02/24 08:20 FiO2 Intake & Output 02/01/24 02/02/24 02/02/24 18:59 06:59 18:59 Output Total 25 Balance -25 Weight 95.254 kg Output: Urine 25 Other: Voiding Method External Catheter Indwelling Catheter # Voids 2 - Exam The patient is a 83-year-old female who is in no acute distress. She is alert and oriented 3. Exam of the right upper extremity reveals a long arm splint and sling in place. She is able to wiggle her fingers without difficulty and denies any numbness. Exam of the left upper extremity reveals point tenderness to the humeral head and some ecchymosis to the left upper arm. Neurovascular status is intact bilaterally. - Labs CBC & Chem 7: 02/01/24 10:08 02/02/24 07:50 Labs: Abnormal Lab Results - Last 24 Hours (Table) 02/01/24 02/01/24 02/01/24 Range/Units 10:08 10:08 17:12 RBC 3.90 L (4.10-5.20) X 10*6/uL Hgb 11.4 L (12.0-15.0) g/dL Hct 35.0 L (37.2-46.3) % MPV 12.4 H (9.5-12.2) FL Eosinophils # 0.01 L (0.04-0.35) X 10*3/uL Sodium (137-145) mmol/L Potassium (3.5-5.1) mmol/L Chloride (98-107) mmol/L Carbon Dioxide (22-30) mmol/L BUN (7-17) mg/dL Creatinine (0.52-1.04) mg/dL Glucose (74-99) mg/dL POC Glucose (mg/dL) 168 H (70-110) mg/dL Hemoglobin A1c 6.7 H (<=6.0) % Calcium (8.4-10.2) mg/dL 02/01/24 02/02/24 02/02/24 Range/Units 20:04 06:28 07:50 RBC (4.10-5.20) X 10*6/uL Hgb (12.0-15.0) g/dL Hct (37.2-46.3) % MPV (9.5-12.2) FL Eosinophils # (0.04-0.35) X 10*3/uL Sodium 135 L (137-145) mmol/L Potassium 5.2 H (3.5-5.1) mmol/L Chloride 111 H (98-107) mmol/L Carbon Dioxide 18 L (22-30) mmol/L BUN 42 H (7-17) mg/dL Creatinine 1.77 H (0.52-1.04) mg/dL Glucose 176 H (74-99) mg/dL POC Glucose (mg/dL) 191 H 202 H (70-110) mg/dL Hemoglobin A1c (<=6.0) % Calcium 7.7 L (8.4-10.2) mg/dL 02/02/24 Range/Units 12:19 RBC (4.10-5.20) X 10*6/uL Hgb (12.0-15.0) g/dL Hct (37.2-46.3) % MPV (9.5-12.2) FL Eosinophils # (0.04-0.35) X 10*3/uL Sodium (137-145) mmol/L Potassium (3.5-5.1) mmol/L Chloride (98-107) mmol/L Carbon Dioxide (22-30) mmol/L BUN (7-17) mg/dL Creatinine (0.52-1.04) mg/dL Glucose (74-99) mg/dL POC Glucose (mg/dL) 171 H (70-110) mg/dL Hemoglobin A1c (<=6.0) % Calcium (8.4-10.2) mg/dL Assessment and Plan (1) Closed fracture of left proximal humerus Status: Acute Code(s): S42.202A - UNSP FRACTURE OF UPPER END OF LEFT HUMERUS, INIT FOR CLOS FX SNOMED Code(s): 83822008 (2) Fall Status: Acute Code(s): W19.XXXA - UNSPECIFIED FALL, INITIAL ENCOUNTER SNOMED Code(s): 2964541 (3) Right humeral fracture Status: Acute Code(s): S42.301A - UNSP FRACTURE OF SHAFT OF HUMERUS, RIGHT ARM, INIT SNOMED Code(s): 46814269 (4) Obesity (BMI 30.0-34.9) Status: Acute Code(s): E66.9 - OBESITY, UNSPECIFIED SNOMED Code(s): 874731495103662 (5) Diabetes mellitus Status: Acute Code(s): E11.9 - TYPE 2 DIABETES MELLITUS WITHOUT COMPLICATIONS SNOMED Code(s): 21273754 (6) Hypertension Status: Acute Code(s): I10 - ESSENTIAL (PRIMARY) HYPERTENSION SNOMED Code(s): 73082174 (7) Renal disease Status: Acute Code(s): N28.9 - DISORDER OF KIDNEY AND URETER, UNSPECIFIED S NOMED Code(s): 73353263 Plan: The clinical and x-ray findings were discussed with the patient and family at the bedside. The case was discussed at length with Dr. Lechuga. Due to the patient's body habitus, we recommend surgical intervention instead of non-ope rative treatment with a Forde brace. Due to the complexity of the fracture we are recommending transfer to orthopedic trauma at [facility], in which we are currently waiting for bed availability. The case was discussed with Dr. Grubbs and he accepts the patient transfer. The patient and family are aware.
--- NOTE | 2024-02-02 14:39 | P.PN ---
Subjective Progress Note Date: 02/02/24 83-year-old pleasant female had a mechanical fall due to diabetic retinopathy. Patient has right humerus fracture and also has pain in on the left side as per the patient patient also has a minor fracture on the left side patient has severe pain bilaterally. Patient is admitted to orthopedic surgery at this time. Patient does have history of coronary disease patient had a cardiac authorization 6 months ago which showed less than 50% blockages in the blood vessels and did not require any stenting at that time maximal medical therapy was recommended at that time. Patient denies any chest pain at this time patient has some EKG changes which are nonspecific. Patient denied any shortness of breath does have history of moderate aortic stenosis. Patient denied any fever or chills. Patient denies any orthopnea paroxysmal nocturnal dyspnea although patient is on 2 L of oxygen saturating at 95%. I will obtain a chest x-ray patient does have mild pedal edema and also BNP. 02/02/2024 Patient is evaluated in follow-up on the observation unit. Patient is currently pending transfer to [facility] for tertiary care and orthopedic evaluation of the bilateral humerus fracture. BNP 1060, no signs of vascular congestion on chest xray. Patient not having any shortness of breath. Patient did have improved sodium 135, however potassium 5.2 today, BUN 42, creatinine 1.77. Bladder scan showing greater than 800 and IDC will be placed. Decrease gabapentin and stop losartan for now. Review of Systems Constitutional: Denied any fatigue denied any fever. Cardio vascular: denied any chest pain, palpitations Gastrointestinal: denied any nausea, vomiting, diarrhea Pulmonary: Denied any shortness of breath cough Neurologic denied any new focal deficits All inpatient medications were reviewed and appropriate changes in these medications as dictated in the interval history and assessment and plan. PHYSICAL EXAMINATION: GENERAL: The patient is alert and oriented x3, not in any acute distress. Well developed, well nourished. HEENT: Pupils are round and equally reacting to light. EOMI. No scleral icterus. No conjunctival pallor. Normocephalic, atraumatic. No pharyngeal erythema. No thyromegaly. CARDIOVASCULAR: S1 and S2 present. No murmurs, rubs, or gallops. PULMONARY: Chest is clear to auscultation, no wheezing or crackles. ABDOMEN: Soft, nontender, nondistended, normoactive bowel sounds. No palpable organomegaly. MUSCULOSKELETAL: Unable to move left arm right arm has a cast. EXTREMITIES: No cyanosis, clubbing, or pedal edema. NEUROLOGICAL: Gross neurological examination did not reveal any focal deficits. SKIN: No rashes. Splint and sling right arm. Assessment and plan -Right humerus fracture if patient needs surgery patient is low to intermediate operative risk same thing was explained to the patient. -Closed fracture of left proximal humerus -Chronic kidney disease stage III -Acute renal injury likely bumped creatinine from urinary retention. -Constipation no BM for 5 days -Hyponatremia secondary to Aldactone will obtain a BMP patient may have mild hypervolemic hyponatremia; sodium improved off aldactone -Hyperkalemia given dose of lokelma. -Hypertension hold off on losartan -Coronary artery disease resumed on statin aspirin . Recent cath 6 months ago with no intervention. Optimized Medically. -Type 2 diabetes mellitus sliding scale insulin -Hypothyroidism -Moderate aortic stenosis DVT prophylaxis: As per primary service GI prophylaxis: Protonix Full Code Patient has been accepted at [facility] and currently pending a bed at this time. Dr Grubbs has accepted this patient for orthpedic trauma. We will continue off losartan. Indwelling serrano catheter has been placed. Repeat blood work in the AM. The impression and plan of care has been dictated by Guadalupe Tavares, Nurse Practitioner as directed. Dr. Malika MD I have performed a history and physical examination and medical decision making of this patient, discussed the same with the dictator, and agree with the dictators assessment and plan as written, documented as a scribe. Based on total visit time, I have performed more than 50% of this visit. Objective - Vital Signs Vital signs: Vital Signs Temp 98.3 F 02/02/24 08:00 Pulse 77 02/02/24 08:00 Resp 17 02/02/24 08:00 BP 113/43 02/02/24 08:00 Pulse Ox 97 02/02/24 08:20 FiO2 Intake & Output 02/01/24 02/02/24 02/02/24 18:59 06:59 18:59 Output Total 25 Balance -25 Weight 95.254 kg Output: Urine 25 Other: Voiding Method External Catheter Indwelling Catheter # Voids 2 - Labs CBC & Chem 7: 02/01/24 10:08 02/02/24 07:50 Labs: Abnormal Lab Results - Last 24 Hours (Table) 02/01/24 02/01/24 02/01/24 Range/Units 10:08 10:08 17:12 RBC 3.90 L (4.10-5.20) X 10*6/uL Hgb 11.4 L (12.0-15.0) g/dL Hct 35.0 L (37.2-46.3) % MPV 12.4 H (9.5-12.2) FL Eosinophils # 0.01 L (0.04-0.35) X 10*3/uL Sodium (137-145) mmol/L Potassium (3.5-5.1) mmol/L Chloride (98-107) mmol/L Carbon Dioxide (22-30) mmol/L BUN (7-17) mg/dL Creatinine (0.52-1.04) mg/dL Glucose (74-99) mg/dL POC Glucose (mg/dL) 168 H (70-110) mg/dL Hemoglobin A1c 6.7 H (<=6.0) % Calcium (8.4-10.2) mg/dL 02/01/24 02/02/24 02/02/24 Range/Units 20:04 06:28 07:50 RBC (4.10-5.20) X 10*6/uL Hgb (12.0-15.0) g/dL Hct (37.2-46.3) % MPV (9.5-12.2) FL Eosinophils # (0.04-0.35) X 10*3/uL Sodium 135 L (137-145) mmol/L Potassium 5.2 H (3.5-5.1) mmol/L Chloride 111 H (98-107) mmol/L Carbon Dioxide 18 L (22-30) mmol/L BUN 42 H (7-17) mg/dL Creatinine 1.77 H (0.52-1.04) mg/dL Glucose 176 H (74-99) mg/dL POC Glucose (mg/dL) 191 H 202 H (70-110) mg/dL Hemoglobin A1c (<=6.0) % Calcium 7.7 L (8.4-10.2) mg/dL 02/02/24 Range/Units 12:19 RBC (4.10-5.20) X 10*6/uL Hgb (12.0-15.0) g/dL Hct (37.2-46.3) % MPV (9.5-12.2) FL Eosinophils # (0.04-0.35) X 10*3/uL Sodium (137-145) mmol/L Potassium (3.5-5.1) mmol/L Chloride (98-107) mmol/L Carbon Dioxide (22-30) mmol/L BUN (7-17) mg/dL Creatinine (0.52-1.04) mg/dL Glucose (74-99) mg/dL POC Glucose (mg/dL) 171 H (70-110) mg/dL Hemoglobin A1c (<=6.0) % Calcium (8.4-10.2) mg/dL Assessment and Plan Time with Patient: Less than 30
--- NOTE | 2024-02-02 15:07 | US ---
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 Cortical medullary differentiation is maintained bilaterally. No nephrolithiasis is seen. Simple left renal cyst identified in the upper p ole. No solid masses are identified. The urinary bladder is decompressed with Ly catheter placeme nt which limits evaluation. IMPRESSION: 1. No hydronephrosis or nephrolithiasis. 2. Small bilateral anterior indeterminate perinephric fluid. This can be further evaluated with CT ab domen pelvis as indicated.
[2024-02-02 15:27] VITALS: BP 131/51; PULSE 87; TEMP 99.2
[2024-02-02] MEDS ORDERED: GABAPENTIN 100 MG CAP PO SCH (21:00)
== END 2024-02-02 15:53 | disposition short-term general hospital (02) | DRG 563 ==
LOC: EC 21:44 → 4SSUR 22:47 → 1SOBS 02-01 11:09
PROVIDERS: ADMIT Orthopaedic Surgery Hand Surgery; ATTEND Orthopaedic Surgery Hand Surgery
DX: S42.301A Unspecified fracture of shaft of humerus, right arm, initial encounter for closed fracture (principal); N17.9 Acute kidney failure, unspecified; E87.1 Hypo-osmolality and hyponatremia; S42.202A Unspecified fracture of upper end of left humerus, initial encounter for closed fracture; E11.319 Type 2 diabetes mellitus with unspecified diabetic retinopathy without macular edema; D63.1 Anemia in chronic kidney disease; E11.42 Type 2 diabetes mellitus with diabetic polyneuropathy; E11.22 Type 2 diabetes mellitus with diabetic chronic kidney disease; N18.30 Chronic kidney disease, stage 3 unspecified; Z79.4 Long term (current) use of insulin; E89.0 Postprocedural hypothyroidism; I12.9 Hypertensive chronic kidney disease with stage 1 through stage 4 chronic kidney disease, or unspecified chronic kidney disease; E66.9 Obesity, unspecified; I35.0 Nonrheumatic aortic (valve) stenosis; Z68.34 Body mass index [BMI] 34.0-34.9, adult; E78.5 Hyperlipidemia, unspecified; K59.00 Constipation, unspecified; T50.0X5A Adverse effect of mineralocorticoids and their antagonists, initial encounter; E87.5 Hyperkalemia; I25.10 Atherosclerotic heart disease of native coronary artery without angina pectoris; R33.9 Retention of urine, unspecified; W18.39XA Other fall on same level, initial encounter; Y92.008 Other place in unspecified non-institutional (private) residence as the place of occurrence of the external cause; Z79.84 Long term (current) use of oral hypoglycemic drugs; Z79.890 Hormone replacement therapy; Z79.899 Other long term (current) drug therapy
CPT/HCPCS: 71045; 76770; 80048; 83036; 83735; 83880; 85025; 85610; 85730; 93005; 94760; 96374; 96375; 96376; 99285

== ENCOUNTER → 2024-08-31 | Outpatient (CLI) | payer MEDICARE, BC ==
[2024-08-31 12:46] VITALS: BP 149/68; PULSE 83; RESP 17; TEMP 97.5
--- NOTE | 2024-08-31 15:48 | P.PAINPG ---
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 Pt states pain level is provoked at 5-6 /10 in intensity, constant, localized in the thoracic spine, predominantly axial, achy in character w occasional shooting pain towards the shoulders, UEs and chest. Pain is provoked by lifting. Pain is alleviated by PT x 6 wks which ended in Mar 2024, physician guided home stretches daily since Feb 2024, medications, repositioning and rest . Interventional procedures include R Hip ORIF (Jan 2024) Medications include [place] 5/325mg #60, Tyl, Magn spray REVIEW OF ORGAN SYSTEMS: CONSTITUTIONAL: No fevers or chills. No recent weight loss. NEUROLOGICAL: + numbness and tingling along the distal extremities. No seizure disorders or headaches. MUSCULOSKELETAL: + pain PSYCHIATRIC: Denies current depression or suicidal thoughts. Physical Examinations : Constitutional : Cooperative , not in acute distress . Neurologic : Cranial nerve II to XII intact. No focal neurological deficits. Psychiatric : alert & oriented x 3. Matching mood & appropriate affect. Judgment & insight intact. Musculoskeletal : Cervical Spine +RUE Incisional Scar intact Motor strength in the deltoid and biceps: Normal right side. Normal Left side Motor strength biceps and the wrist extensors: Normal right side . Normal left side Motor strength in the triceps muscle: Normal right side. Normal left side Deep tendon reflexes: Normal at the biceps. Normal at Brachioradialis. Normal at triceps Vertebral body tenderness to deep palpation over Cervical facet loading test: positive bilaterally Spurling test: positive bilaterally Neck distraction test: positive bilaterally Rajendra sign: positive bilaterally Lumbar spine Motor strength lower extremities ,thigh and legs 5/5 Right side , 5/5 Left side Deep tendon reflexes : Normal Knee Jerk. Normal Ankle Jerk Vertebral body tenderness over Quinteros Test positive Lumbar facet Loading Test: positive Right / positive Left Range of motion of the lumbar spine Flexion 30 degrees, extension 10 degrees Straight Leg Raise test: Left/ Right positive at degrees Ruba test: positive right / positive left. Severe tenderness over the Sacroiliac joint on the Right / Left sides Gaenslen test: positive bilaterally Seated flexion test: positive bilaterally. Sacral spine : Severe tenderness over the Sacroiliac joint: right side / left side Range of motion: Flexion of the lumbar spine <60 degrees Range of motion: Extension of the lumbar spine <20 degrees Gaenslen's Test positive Ruba test: positive right side / left side Thigh Thrust Test Sacral Thrust Test Imaging: X rays R Humerus from 04/12/24 reviewed X rays L Humerus from 01/31/24 reviewed Assessment/ Plan : BL Humerus Traumatic Arthropathy, post R Humerus Fixation Recommendation of medication management. UDS at next visit. Opiate/ narcotic agreement signed 06/28/24. [place] 5/325mg #60 w 1 RF. Use, side effects, adverse reactions, safe storage discussed. All questions answered. I have spent greater than 30 minutes on patient care today. Dr Morales was available by phone for the evaluation of this patient. The time was used to review the medical records including relevant urine studies and Prescription history (MAPs), review of the available imaging, evaluation and examination of the patient, coordination of care with the medical staff and if applicable referring physicians, as well as creation of the medical record PQRS Narrative: Hx Alcohol Use (MH) No Home Medications: Ambulatory Orders Cholecalciferol [Vitamin D3 (25 Mcg = 1000 Iu)] 50 mcg PO DAILY 01/03/21 Gabapentin [Neurontin] 400 mg PO BID 01/03/21 Calcium Carbonate [Tums] 500 mg PO DAILY 06/19/22 Losartan Potassium [Cozaar] 50 tab PO DAILY 06/19/22 INSULIN LISPRO (HumaLOG) [humaLOG] See Protocol SQ AC-TID 10/08/23 Insulin Glargine/Lixisenatide [Soliqua 100 Unit-33 Mcg/ml Pen] 46 unit SQ DAILY 10/08/23 Spironolactone 25 mg PO HS 10/08/23 Chlorhexidine Gluconate [Peridex] 15 ml PO BID 02/01/24 Empagliflozin [Jardiance] 10 mg PO DAILY 02/01/24 Levothyroxine Sodium [Synthroid] 112 mcg PO DAILY 02/01/24 Potassium Citrate [Urocit-K] 15 meq PO BID 02/01/24 amLODIPine [Norvasc] 10 mg PO HS 02/01/24 HYDROcodone/APAP 5-325MG [[place] 5-325] 1 tab PO BID PRN 30 Days #60 tab 06/28/24 HYDROcodone/APAP 5-325MG [[place] 5-325] 1 tab PO BID PRN 30 Days #60 tab 06/28/24 Controlled Substance Measures - Controlled Substance Measures Is patient prescribed a controlled substance at discharge?: Yes When asked, does pt state using other controlled substances?: No If prescribed controlled substance>3 days was MAPS reviewed?: Yes
== END ==
LOC: PNWHC3 11:41
PROVIDERS: ATTEND Specialist
DX: M12.542 Traumatic arthropathy, left hand (principal); M12.541 Traumatic arthropathy, right hand
CPT/HCPCS: 99211

== ENCOUNTER → 2024-11-15 | Outpatient (CLI) | payer MEDICARE, BC ==
[2024-11-15 08:27] VITALS: BP 167/73; PULSE 67; RESP 17
--- NOTE | 2024-11-15 16:12 | P.PAINPG ---
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 Pt states pain level is provoked at 5-6 /10 in intensity, constant, localized in the thoracic spine, predominantly axial, achy in character w occasional shooting pain towards the shoulders, UEs and chest. Pain is provoked by lifting. Pain is alleviated by PT x 6 wks which ended in Mar 2024, physician guided home stretches daily since Feb 2024, medications, repositioning and rest . Interventional procedures include R Hip ORIF (Jan 2024) Medications include [place] 5/325mg #60, Tyl, Magn spray REVIEW OF ORGAN SYSTEMS: CONSTITUTIONAL: No fevers or chills. No recent weight loss. NEUROLOGICAL: + numbness and tingling along the distal ext remities. No seizure disorders or headaches. MUSCULOSKELETAL: + pain PSYCHIATRIC: Denies current depression or suicidal thoughts. Physical Examinations : Constitutional : Cooperative , not in acute distress . Neurologic : Cranial nerve II to XII intact. No focal neurological deficits. Psychiatric : alert & oriented x 3. Matching mood & appropriate affect. Judgment & insight intact. Musculoskeletal : Cervical Spine +RUE Incisional Scar intact Motor strength in the deltoid and biceps: Normal right side. Normal Left side Motor strength biceps and the wrist extensors: Normal right side . Normal left side Motor strength in the triceps muscle: Normal right side. Normal left side Deep tendon reflexes: Normal at the biceps. Normal at Brachioradialis. Normal at triceps Vertebral body tenderness to deep palpation over Cervical facet loading test: positive bilaterally Spurling test: positive bilaterally Neck distraction test: positive bilaterally Rajendra sign: positive bilaterally Lumbar spine Motor strength lower extremities ,thigh and legs 5/5 Right side , 5/5 Left side Deep tendon reflexes : Normal Knee Jerk. Normal Ankle Jerk Vertebral body tenderness over Quinteros Test positive Lumbar facet Loading Test: positive Right / positive Left Range of motion of the lumbar spine Flexion 30 degrees, extension 10 degrees Straight Leg Raise test: Left/ Right positive at degrees Ruba test: positive right / positive left. Severe tenderness over the Sacroiliac joint on the Right / Left sides Gaenslen test: positive bilaterally Seated flexion test: positive bilaterally. Sacral spine : Severe tenderness over the Sacroiliac joint: right side / left side Range of motion: Flexion of the lumbar spine <60 degrees Range of motion: Extension of the lumbar spine <20 degrees Gaenslen's Test positive Ruba test: positive right side / left side Thigh Thrust Test Sacral Thrust Test Imaging: X rays R Humerus from 04/12/24 reviewed X rays L Humerus from 01/31/24 reviewed Assessment/ Plan : BL Humerus Traumatic Arthropathy, post R Humerus Fixation Recommendation of medication management. UDS 11/15/24. Opiate/ narcotic agreement signed 06/28/24. [place] 5/325mg #60 w 1 RF. Use, side effects, adverse reactions, safe storage discussed. All questions answered. I have spent greater than 30 minutes on patient care today. Dr Morales was available by phone for the evaluation of this patient. The time was used to review the medical records including relevant urine studies and Prescription history (MAPs), review of the available imaging, evaluation and examination of the patient, coordination of care with the medical staff and if applicable referring physicians, as well as creation of the medical record - Pain Location Bilateral Shoulder Pharmacological Interventions: Medication PQRS Narrative: Blood Pressure 167/73 Pain Intensity [Bilateral 6 Shoulder] Scale Used Numeric (1 - 10) Hx Alcohol Use (MH) No Home Medications: Ambulatory Orders Cholecalciferol [Vitamin D3 (25 Mcg = 1000 Iu)] 50 mcg PO DAILY 01/03/21 Gabapentin [Neurontin] 400 mg PO BID 01/03/21 Calcium Carbonate [Tums] 500 mg PO DAILY 06/19/22 Losartan Potassium [Cozaar] 50 tab PO DAILY 06/19/22 INSULIN LISPRO (HumaLOG) [humaLOG] See Protocol SQ AC-TID 10/08/23 Insulin Glargine/Lixisenatide [Soliqua 100 Unit-33 Mcg/ml Pen] 46 unit SQ DAILY 10/08/23 Spironolactone 25 mg PO HS 10/08/23 Chlorhexidine Gluconate [Peridex] 15 ml PO BID 02/01/24 Empagliflozin [Jardiance] 10 mg PO DAILY 02/01/24 Levothyroxine Sodium [Synthroid] 112 mcg PO DAILY 02/01/24 Potassium Citrate [Urocit-K] 15 meq PO BID 02/01/24 amLODIPine [Norvasc] 10 mg PO HS 02/01/24 HYDROcodone/APAP 5-325MG [[place] 5-325] 1 tab PO BID PRN 30 Days #60 tab 11/15/24 HYDROcodone/APAP 5-325MG [[place] 5-325] 1 tab PO BID PRN 30 Days #60 tab 11/15/24 Controlled Substance Measures - Controlled Substance Measures Is patient prescribed a controlled substance at discharge?: Yes When asked, does pt state using other controlled substances?: No If prescribed controlled substance>3 days was MAPS reviewed?: Yes
== END ==
LOC: PNWHC3 08:14
PROVIDERS: ATTEND Specialist
DX: M12.511 Traumatic arthropathy, right shoulder (principal); M12.512 Traumatic arthropathy, left shoulder; Z98.890 Other specified postprocedural states
CPT/HCPCS: 80307; G0463; 99212